=== PATIENT | female | born 1965 | race Caucasian/White ===

== ENCOUNTER 2016-09-23 13:50 | Inpatient (IN) | payer OTHER ==
--- NOTE | 2016-09-23 14:01 | PDOC ---
History of Present Illness - General History Source: Patient Exam Limitations: No Limitations - History of Present Illness Initial Comments: 09/23/16 15:56 51 y/o F with no PMHx presents to the ED with bloody diarrhea today. Patient reports that she noticed one episode of a maroon colored, soft, bloody stool 5 days ago but since then they have been normal until today. Today she reports bright red bloody diarrhea. She reports associated dizziness and nausea. She states she has been taking 800 mg daily for two weeks because of an ankle sprain. She denies pain on defecation. She denies abdominal pain, vomiting. She denies chest pain, SOB, dizziness. She denies fever, chills. Allergies: ciprofloxacin, ciprofloxacin HCl, levofloxacin FHx: maternal MS, [place] SHx: chews nicotine gum, social drinker <Luna Estrada - Last Filed: 09/23/16 15:56> - History of Present Illness Initial Comments: 09/23/16 17:31 Repeat H&H 10 and 30, drop considerably from 13 and 40 upon admission. Blood loss and delusional effects. <Power Last - Last Filed: 09/24/16 07:53> - General Chief Complaint: Rectal Bleed Stated Complaint: BLOOD IN STOOL Time Seen by Provider: 09/23/16 14:00 Past History <Luna Estrada - Last Filed: 09/23/16 15:56> - Past Medical History Other medical history: DENIES - Psycho/Social/Smoking Cessation Hx Anxiety: No Suicidal Ideation: No Smoking History: Former smoker Have you smoked in the past 12 months: No Information on smoking cessation initiated: No Hx Alcohol Use: Yes Drug/Substance Use Hx: No Substance Use Type: Alcohol <Power Last - Last Filed: 09/24/16 07:53> - Past Medical History Allergies/Adverse Reactions: Allergies Allergy/AdvReac Type Severity Reaction Status Date / Time ciprofloxacin [From Cipro] Allergy Verified 09/23/16 13:53 ciprofloxacin HCl Allergy Verified 09/23/16 13:53 [From Cipro] levofloxacin [From Levaquin] Allergy Verified 09/23/16 13:53 Home Medications: Ambulatory Orders NK [No Known Home Medication] 09/23/16 Review of Systems - Review of Systems Able to Perform ROS?: Yes Comments:: 09/23/16 15:57 CONSTITUTIONAL: Absent: fever, chills, diaphoresis, generalized weakness, malaise, loss of appetite HEENT: Absent: rhinorrhea, nasal congestion, throat pain, throat swelling, difficulty swallowing, mouth swelling, ear pain, eye pain, visual changes CARDIOVASCULAR: Absent: chest pain, syncope, palpitations, irregular heart rate , lightheadedness, peripheral edema RESPIRATORY: Absent: cough, shortness of breath, dyspnea with exertion, orthopnea, wheezing, stridor, hemoptysis GASTROINTESTINAL: (+) diarrhea, hematochezia. Absent: abdominal pain, abdominal distension, nausea, vomiting, constipation GENITOURINARY: Absent: dysuria, frequency, urgency, hesitancy, hematuria, flank pain, genital pain MUSCULOSKELETAL: Absent: myalgia, arthralgia, joint swelling SKIN: Absent: rash, itching, pallor HEMATOLOGIC/IMMUNOLOGIC: Absent: easy bleeding, easy bruising, lymphadenopathy, frequent infections ENDOCRINE: Absent: unexplained weight gain, unexplained weight loss, heat intolerance, cold intolerance NEUROLOGIC: (+) dizziness. Absent: headache, focal weakness or paresthesias, unsteady gait, seizure, mental status changes, bladder or bowel incontinence PSYCHIATRIC: Absent: anxiety, depression, suicidal or homicidal ideation, hallucinations. <Luna Estrada - Last Filed: 09/23/16 15:56> *Physical Exam - Vital Signs Last Vital Signs Temp Pulse Resp BP Pulse Ox 86 16 144/96 99 09/23/16 14:00 09/23/16 13:51 09/23/16 14:00 09/23/16 13:51 - Physical Exam Comments: 09/23/16 15:57 GENERAL: Alert and oriented x 3. Well nourished but pale, lightheaded, but no chest or abdominal pain. Orthostatic vital signs were performed in lying and sitting position. She did not tolerate standing due to lightheadedness. BP lying flat were 121/79 and 73 pulse. Upon sitting with her legs over the bed, BP was 114/85 and 86 pulse. HEENT: Pallor, but otherwise clear. CARDIOVASCULAR: Otherwise normal. PULMONARY: Lungs clear to auscultation bilaterally. ABDOMINAL: Soft. Non-tender. No masses. No organomegaly. Remainder of the exam was normal. <Luna Estrada - Last Filed: 09/23/16 15:56> - Vital Signs Last Vital Signs Temp Pulse Resp BP Pulse Ox 84 16 135/97 99 09/23/16 13:51 09/23/16 13:51 09/23/16 13:51 09/23/16 13:51 <Power Last - Last Filed: 09/24/16 07:53> ED Treatment Course - LABORATORY CBC & Chemistry Diagram: 09/23/16 14:09 09/23/16 14:09 - ADDITIONAL ORDERS Additional order review: Laboratory Results 09/23/16 14:09 INR Cancelled 09/23/16 14:09 RBC 4.82 MCV 83.3 MCHC 33.9 RDW 13.0 MPV 8.6 Neutrophils % 75.2 Lymphocytes % 17.1 Monocytes % 6.1 Eosinophils % 1.1 Basophils % 0.5 - Medications Given in the ED: ED Medications Discontinued Medications Generic Name Dose Route Start Last Admin Trade Name Keoq PRN Reason Stop Dose Admin Pantoprazole Sodium 40 mg/ 100 mls @ 200 mls/hr 09/23/16 14:52 09/23/16 15:17 Sodium Chloride IVPB 09/23/16 15:21 200 mls/hr ONCE ONE Administration Sodium Chloride 1,000 mls @ 1,000 mls/hr 09/23/16 14:55 09/23/16 15:03 Normal Saline - IV 09/23/16 15:54 1,000 mls/hr ASDIR STA Administration Ondansetron HCl 4 mg 09/23/16 15:06 09/23/16 15:17 Zofran Injection IVPB 09/23/16 15:07 4 mg ONCE ONE Administration <Luna Estrada - Last Filed: 09/23/16 15:56> - LABORATORY CBC & Chemistry Diagram: 09/24/16 05:15 09/24/16 05:15 <Power Last - Last Filed: 09/24/16 07:53> Medical Decision Making - Medical Decision Making 09/23/16 16:51 Patient had several episodes of bloody stool, quite voluminous, upon arrival in the ER. However, this has subsided. She continues to be free of abdominal pain and vomiting. Her blood pressure, however, which was 140/90 when she arrived, has dropped to the 100/60 range with orthostatic changes. Intravenous fluids have been administered, blood has been drawn for type and crossmatch. Although her H&H is 13 and 40, this was done immediately after arrival and probably before equilibration. Suspect that her red blood count will be much lower now. Dr. Tavera has been contacted and has accepted the patient for the ICU. Hospitalist PA Dr. Burnham, was contacted by phone. He has accepted the case for Dr. segovia who will be the hospitalist attending Repeat hematocrit is 28 after equilibration. The patient appears to have stabilized. Only one further episode of bloody diarrhea in the last few hours. No abdominal pain. No chest pain or dizziness. Awaiting transport to the ICU. Signed out to Dr. Jay at 7 PM pending further observation and transport when available. <Power Last - Last Filed: 09/24/16 07:53> *DC/Admit/Observation/Transfer - Attestations Scribe Attestion: 09/23/16 15:57 Documentation prepared by Luna Estrada, acting as medical assistant for Power Lemons MD. <Luna Estrada - Last Filed: 09/23/16 15:56> - Discharge Dispostion Admit: Yes <Power Last - Last Filed: 09/24/16 07:53> Diagnosis at time of Disposition: GI bleed Qualifiers: GI bleed type/associated pathology: unspecified gastrointestinal hemorrhage type Qualified Code(s): K92.2 - Gastrointestinal hemorrhage, unspecified - Discharge Dispostion Condition at time of disposition: Stable
[2016-09-23 14:31] LABS: BASOPHIL 0.5 % (0-2.0); EOSINOPHIL 1.1 % (0-4.5); MCH 28.2 pg (25.7-33.7); MCHC 33.9 g/dl (32.0-36.0); MEAN CELL VOLUME 83.3 fl (80-96); MEAN PLT VOLUME 8.6 fl (7.5-11.1); NEUTROPHILS 75.2 % (42.8-82.8); PLATELET COUNT 287 K/MM3 (134-434); WHITE BLOOD COUNT 11.4 K/mm3 (4.0-10.8)
[2016-09-23] MEDS ORDERED: PANTOPRAZOLE SODIUM 40 MG in SODIUM CHLORIDE 100 ML IVPB ONE (14:52)
[2016-09-23] MEDS ORDERED: SODIUM CHLORIDE 1,000 ML IV STA ×3 (14:55→18:54)
[2016-09-23] MEDS ORDERED: PANTOPRAZOLE SODIUM 40 MG VIAL ONE (15:06)
[2016-09-23] MEDS ORDERED: ONDANSETRON 4 MG/2 ML VIAL ONE (15:06)
[2016-09-23] MEDS ORDERED: ONDANSETRON 4 MG/2 ML VIAL IVPB ONE (15:06)
[2016-09-23 16:03] LABS: INR 0.96 (0.82-1.09); PROTHROMBIN TIME (PATIENT) 10.8 SEC (10.2-13.0)
[2016-09-23 16:23] LABS: PH,URINE 5.5 (4.5-8); URINE APPEARANCE Clear; URINE BILIRUBIN 1+ (NEGATIVE); URINE BLOOD Negative (NEGATIVE); URINE GLUCOSE (UA) Negative (NEGATIVE); URINE KETONE 3+ (NEGATIVE); URINE LEUK ESTERASE Negative (NEGATIVE); URINE NITRITE Negative (NEGATIVE); URINE PROTEIN Negative (NEGATIVE); URINE UROBILINOGEN 0.2 (0.2-1.0)
[2016-09-23 16:24] LABS: URINE COLOR YELLOW
[2016-09-23 17:10] LABS: BASOPHIL 0.1 % (0-2.0); EOSINOPHIL 0.5 % (0-4.5); MCH 28.1 pg (25.7-33.7); MCHC 33.8 g/dl (32.0-36.0); MEAN CELL VOLUME 83.2 fl (80-96); MEAN PLT VOLUME 8.7 fl (7.5-11.1); NEUTROPHILS 83.3 % (42.8-82.8); PLATELET COUNT 233 K/MM3 (134-434); RDW 13.3 % (11.6-15.6); WHITE BLOOD COUNT 12.7 K/mm3 (4.0-10.8)
[2016-09-23 18:23] LABS: ALBUMIN 4.1 g/dl (3.5-5.0); ALK PHOS 55 U/L (32-92); ANION GAP 11 (8-16); BILIRUBIN,TOTAL 0.5 mg/dl (0.2-1.0); CALCIUM 9.2 mg/dl (8.4-10.2); CO2 21 mmol/L (22-28); CREATININE 0.8 mg/dl (0.6-1.3); GLUCOSE,RANDOM 108 mg/dl (74-106); SGOT/AST 23 U/L (10-42); SGPT/ALT 13 U/L (10-40); TOT PROT 6.5 g/dl (6.4-8.3)
[2016-09-23 19:15] LABS: BASOPHIL 1.5 % (0-2.0); EOSINOPHIL 0.6 % (0-4.5); MCH 27.8 pg (25.7-33.7); MCHC 33.1 g/dl (32.0-36.0); MEAN CELL VOLUME 84.1 fl (80-96); MEAN PLT VOLUME 8.4 fl (7.5-11.1); NEUTROPHILS 76.8 % (42.8-82.8); PLATELET COUNT 204 K/MM3 (134-434); RDW 12.9 % (11.6-15.6); WHITE BLOOD COUNT 9.8 K/mm3 (4.0-10.8)
[2016-09-23] MEDS ORDERED: ACETAMINOPHEN 325 MG TABLET (FP) PO PRN (22:08)
[2016-09-23] MEDS ORDERED: PROPOFOL 100 ML IVPB SCH (22:30)
[2016-09-23] MEDS: SODIUM CHLORIDE 1,000 ML IV SCH (22:34)
[2016-09-23] MEDS: CHLORHEXIDINE GLUCONATE 4% CLEANSER FOR DECOLONIZATION TP SCH (22:34)
[2016-09-23] MEDS: PANTOPRAZOLE SODIUM 80 MG in SODIUM CHLORIDE 100 ML IVPB SCH (22:34)
[2016-09-23] MEDS: MUPIROCIN 2% TOPICAL OINTMENT FOR DECOLONIZATION NS SCH (22:35)
[2016-09-23] MEDS ORDERED: PIPERACILLIN/TAZOB 3.375 GM 50 ML IVPB ONE (23:21)
--- NOTE | 2016-09-23 23:48 | PN ---
Teaching Attending Note Name of Resident: Yara Rees ATTENDING PHYSICIAN STATEMENT I saw and evaluated the patient. I reviewed the resident's note and discussed the case with the resident. I agree with the resident's findings and plan as documented. SUBJECTIVE: 51 yo obese female transferred from [facility] to [place] ICU with presumed acute GI bleed. Denies fever, chills, abdominal pain, chest pain, G/U complaints. Endorses melena x 1 followed by normal BM's and ultimately voluminous diarrhea with bright red blood at home and witnessed in ED. Denies any abdominal pain preceding or during movements. Does report NSAID use, approx. 800mg qD intermittently over past 2-3 weeks and recent travel history to [place] where she was hiking and swimming in a river. OBJECTIVE: - Vital Signs Temp: BP: 80-110s SBP HR: 70-80s RR: 16 spO2: 97-100% RA - Physical Examination General: Pale appearing obese female; Alert, cooperative and in NAD. HEENT: Pale conjunctiva, no oropharyngeal lesions Neck: No JVD or thyromegaly CV: RRR, S1 and S2 Pulm: CTA bilaterally Abd: Obese, soft, NTTP, ND, hyperactive bowel sounds Ext: Non-edematous, symmetrically appearing Skin: Raised papular lesions on abdomen RUQ that are non-pruritic and non- painful to touch; Few excoriations from healing bug bites on LE's - Imaging CXR reviewed CT A/P w/ Contrast Pending - Labs BUN/Cr: 22/0.8 K+ 4.6 ; Na 134 Leukocytosis 11.4 H/H downtrending from 13.6/40.2 to 9.5/28.9 Fecal occult positive UA significant for 3+ ketones and 1+ bilirubin Stool and Urine cultures pending ASSESSMENT: Acute Blood Loss Anemia GI Bleed - Presumed LGI source per history Leukocytosis - reactive or indicative of occult infection Hypotension - Low normal, responding to IVF hydration PLAN: Admit to ICU for close monitoring of hemodynamic stability, aggressive IVF hydration while awaiting GI consultation. IVF hydration w/ NS at this time, switch to 1/2 NS or LR if repeat CMP reveals rising Cl- ; Continue IV Protonix ; Zofran prn nausea ; NO NSAID Start Zosyn empiric coverage ( Cipro allergy ) Trend H/H q8h ; F/U CMP and pending cultures Type and screen already completed ; Transfuse if Hgb < 7 F/U CT A/P w/ IV and PO contrast F/U GI Consult eval and recs DISPOSITION Inpatient admission for above ; anticipate discharge >48h.
--- NOTE | 2016-09-23 23:48 | CONSULT ---
Consult Consult Specialty:: Pulmonary Critical Care Referred by:: Dr. Valdivia Reason for Consultation:: GI bleed - History of Present Illness Chief Complaint: Bloody diarrhea History of Present Illness: Pt is a 51 yo with no PMH who presented to ED ? bloody diarrhea x 1 day. Pt also reported dizziness and nausea. She stated that she has been taking 800mg of NSAID for the past two weeks for ankle pain. On arrival to ED pts Hgb was 13. While in ER had several episodes of bloody stool. On arrival to ED she was hemodynamically stable with BP of 135/97 and HR of 84, though subsequently her BP decreased somewhat to 100/60. She is now transferred to ICU for closer monitoring. Last Hgb prior to arrival to ICU was 9.5, no bloody bowel movements since admission to the ICU. Repeat CBC pending as well as CT A/P. Current Medications Acetaminophen (Tylenol -) 650 mg PO Q4H PRN PRN Reason: FEVER OR PAIN Chlorhexidine Gluconate (Hibiclens For Decolonization -) 1 applic TP HS [facility] Last Admin: 09/23/16 22:34 Dose: 1 applic Pantoprazole Sodium 80 mg/ (Sodium Chloride) 100 mls @ 10 mls/hr IVPB Q10H RICH PRN Reason: 8 MG/HR Last Admin: 09/23/16 22:34 Dose: 10 mls/hr Sodium Chloride (Normal Saline -) 1,000 mls @ 125 mls/hr IV ASDIR RICH Last Admin: 09/23/16 22:34 Dose: 125 mls/hr Mupirocin (Bactroban Ointment (For Decolonization) -) 1 applic NS BID [facility] Stop: 09/28/16 21:59 Last Admin: 09/23/16 22:35 Dose: 1 applic - History Source History Provided By: Medical Record - Alcohol/Substance Use Hx Alcohol Use: Yes - Smoking History Smoking history: Former smoker Have you smoked in the past 12 months: No Home Medications - Allergies Allergies/Adverse Reactions: Allergies Allergy/AdvReac Type Severity Reaction Status Date / Time ciprofloxacin [From Cipro] Allergy Verified 09/23/16 13:53 ciprofloxacin HCl Allergy Verified 09/23/16 13:53 [From Cipro] levofloxacin [From Levaquin] Allergy Verified 09/23/16 13:53 - Home Medications Home Medications: Ambulatory Orders NK [No Known Home Medication] 09/23/16 Physical Exam Vital Signs: Vital Signs Temperature Pulse Rate 86 09/23/16 21:03 Respiratory Rate 16 09/23/16 21:03 Blood Pressure 99/65 09/23/16 21:03 O2 Sat by Pulse Oximetry (%) 100 09/23/16 21:03 Constitutional: Yes: Calm Eyes: Yes: Other (pale conjunctiva) Cardiovascular: Yes: Regular Rate and Rhythm Respiratory: Yes: CTA Bilaterally Gastrointestinal: Yes: Abdomen, Obese, Hyperactive Bowel Sounds, Rectal Bleeding. No: Tenderness Extremities: Yes: WNL Edema: No Peripheral Pulses WNL: Yes Neurological: Yes: WNL Labs: CBCD WBC 9.8 K/mm3 (4.0-10.8) 09/23/16 19:05 RBC 3.43 M/mm3 (3.60-5.2) L 09/23/16 19:05 Hgb 9.5 GM/dl (10.7-15.3) L 09/23/16 19:05 Hct 28.9 % (32.4-45.2) L 09/23/16 19:05 MCV 84.1 fl (80-96) 09/23/16 19:05 MCHC 33.1 g/dl (32.0-36.0) 09/23/16 19:05 RDW 12.9 % (11.6-15.6) 09/23/16 19:05 Plt Count 204 K/MM3 (134-434) 09/23/16 19:05 MPV 8.4 fl (7.5-11.1) 09/23/16 19:05 CMP Sodium 134 mmol/L (136-145) L 09/23/16 14:09 Potassium 4.6 mmol/L (3.5-5.1) 09/23/16 14:09 Chloride 102 mmol/L (98-107) 09/23/16 14:09 Carbon Dioxide 21 mmol/L (22-28) L 09/23/16 14:09 Anion Gap 11 (8-16) 09/23/16 14:09 BUN 22 mg/dl (7-18) H 09/23/16 14:09 Creatinine 0.8 mg/dl (0.6-1.3) 09/23/16 14:09 Creat Clearance w eGFR > 60 (>60) 09/23/16 14:09 Calcium 9.2 mg/dl (8.4-10.2) 09/23/16 14:09 Total Bilirubin 0.5 mg/dl (0.2-1.0) 09/23/16 14:09 AST 23 U/L (10-42) 09/23/16 14:09 ALT 13 U/L (10-40) 09/23/16 14:09 Alkaline Phosphatase 55 U/L (32-92) 09/23/16 14:09 Total Protein 6.5 g/dl (6.4-8.3) 09/23/16 14:09 Albumin 4.1 g/dl (3.5-5.0) 09/23/16 14:09 Problem List - Problems (1) GI bleed Code(s): K92.2 - GASTROINTESTINAL HEMORRHAGE, UNSPECIFIED Qualifiers: GI bleed type/associated pathology: unspecified gastrointestinal hemorrhage type Qualified Code(s): K92.2 - Gastrointestinal hemorrhage, unspecified Assessment/Plan Assessment/Plan: GIB in the setting of NSAID use -GI following -avoid NSAIDs -large bore IV x 2 -type and screen -serial CBCs -transfuse for Hgb >7 -CT A/P -cont to monitor in ICU CCT: 35 minutes Tiesha LINN
[2016-09-24 00:03] VITALS: BMI 32.2
[2016-09-24 00:20] LABS: MCH 27.9 pg (25.7-33.7); MEAN CELL VOLUME 84.7 fl (80-96); MEAN PLT VOLUME 8.9 fl (7.5-11.1); PLATELET COUNT 192 K/MM3 (134-434); RDW 13.9 % (11.6-15.6); WHITE BLOOD COUNT 8.4 K/mm3 (4.0-10.0)
--- NOTE | 2016-09-24 00:43 | HP ---
CHIEF COMPLAINT: bright red bloody diarrhea HISTORY OF PRESENT ILLNESS: 51yo F with no significant PMH transferred from [place] c/o bright red bloody diarrhea x 8 episodes since 1pm today. Pt had one episode of bloody diarrhea at work before a meeting, then went into her meeting and had to excuse herself for another episode. She went back into her meeting, felt weak and had to lie on the floor. Her co-worker drove her to [facility]. She had more episodes of bloody diarrhea at [facility], was transferred here (straight into the ICU) and has had additional episodes here. Pt reported one episode of melena on Wednesday. Pt just returned from a 2 week vacation in [place] one week ago. On vacation she swam in fresh water, did some small hikes, and took 800mg Ibuprofen daily. Back in June she injured her Left knee but never went to the doctor, it has not been bothering her until vacation. She normally only takes Ibuprofen a couple times a month, but has been taking it more regularly for the past couple weeks. Pt denies hx of ulcers, h. pylori, diverticulosis, or similar symptoms. Pt denies abdominal pain, hemoptysis, hematuria, chest pain, SOB, dizziness. ICU course was notable for: (1) CBC, CMP, stool culture, urine culture (2) CXR pending (3) NS @ 125 ml/hr (4) Protonix drip 40mg IVPB Recent Travel: 2 weeks in [place] returning 1 week ago PAST MEDICAL HISTORY: hemorrhoids in PAST SURGICAL HISTORY: 14 yrs ago complicated by hospital acquired infection treated with antibiotics. carpal tunnel repair 30 yrs ago. Social History: Smoking: nicotine gum Alcohol: socially Drugs: none Family History: mom MS, [place] at age 70 with double bypass CABG mother's brother quadruple bypass CABG Allergies ciprofloxacin [From Cipro] Allergy (Verified 09/23/16 13:53) ciprofloxacin HCl [From Cipro] Allergy (Verified 09/23/16 13:53) levofloxacin [From Levaquin] Allergy (Verified 09/23/16 13:53) HOME MEDICATIONS: Home Medications Medication Instructions Recorded NK [No Known Home Medication] 09/23/16 REVIEW OF SYSTEMS CONSTITUTIONAL: Absent: fever, chills, diaphoresis, generalized weakness, malaise, loss of appetite HEENT: Absent: rhinorrhea, nasal congestion, throat pain, ear pain, eye pain, visual changes CARDIOVASCULAR: Absent: chest pain, palpitations, irregular heart rate, lightheadedness, peripheral edema RESPIRATORY: Absent: hemoptysis, cough, shortness of breath, dyspnea with exertion, orthopnea , wheezing, stridor GASTROINTESTINAL: Present: BRBPR diarrhea Absent: abdominal pain, abdominal distension, nausea, vomiting, constipation, melena GENITOURINARY: Absent: hematuria MUSCULOSKELETAL: Absent: myalgia, arthralgia, joint swelling, back pain, neck pain SKIN: Absent: rash, itching, pallor HEMATOLOGIC/IMMUNOLOGIC: Absent: easy bleeding, easy bruising, lymphadenopathy, frequent infections ENDOCRINE: Absent: unexplained weight gain, unexplained weight loss, heat intolerance, cold intolerance NEUROLOGIC: Absent: bladder/bowel incontinence, headache, focal weakness or paresthesias, dizziness, unsteady gait, seizure, mental status changes PSYCHIATRIC: Absent: anxiety, depression. PHYSICAL EXAMINATION Last Vital Signs Temp Pulse Resp BP Pulse Ox 98.6 F 78 12 122/76 100 09/23/16 23:43 09/23/16 23:43 09/23/16 23:43 09/23/16 23:43 09/23/16 23:43 GENERAL: Awake, alert, and fully oriented, in no acute distress. HEAD: Normal with no signs of trauma. EYES: Pupils equal, round and reactive to light, extraocular movements intact, sclera anicteric, conjunctival pallor. No lid lag. EARS, NOSE, THROAT: Oropharynx clear without exudates. Moist mucous membranes. NECK: Supple without lymphadenopathy, JVD, or masses. LUNGS: Breath sounds equal, clear to auscultation bilaterally. No wheezes, and no crackles. No accessory muscle use. HEART: Regular rate and rhythm, normal S1 and S2 without murmur, rub or gallop. ABDOMEN: Soft, nontender, not distended, hyperactive bowel sounds, no guarding, no rebound, no masses. No hepatomegaly or splenomegaly. LOWER EXTREMITIES: 2+ pulses, warm, well-perfused. No calf tenderness. No peripheral edema. NEUROLOGICAL: Cranial nerves II-XII intact. Normal speech. Normal gait. PSYCHIATRIC: Cooperative. Good eye contact. Appropriate mood and affect. SKIN: A cluster of 5 raised, red, papular, non-pruritic, non-painful lesions noted on RUQ, new today per pt. Warm, dry, normal turgor. Laboratory Last Values WBC 9.8 K/mm3 (4.0-10.8) 09/23/16 19:05 RBC 3.43 M/mm3 (3.60-5.2) L 09/23/16 19:05 Hgb 9.5 GM/dl (10.7-15.3) L 09/23/16 19:05 Hct 28.9 % (32.4-45.2) L 09/23/16 19:05 MCV 84.1 fl (80-96) 09/23/16 19:05 MCH 27.8 pg (25.7-33.7) 09/23/16 19:05 MCHC 33.1 g/dl (32.0-36.0) 09/23/16 19:05 RDW 12.9 % (11.6-15.6) 09/23/16 19:05 Plt Count 204 K/MM3 (134-434) 09/23/16 19:05 MPV 8.4 fl (7.5-11.1) 09/23/16 19:05 Neutrophils % 76.8 % (42.8-82.8) 09/23/16 19:05 Lymphocytes % 15.7 % (8-40) D 09/23/16 19:05 Monocytes % 5.4 % (3.8-10.2) 09/23/16 19:05 Eosinophils % 0.6 % (0-4.5) 09/23/16 19:05 Basophils % 1.5 % (0-2.0) D 09/23/16 19:05 INR 0.96 (0.82-1.09) L 09/23/16 15:54 Sodium 134 mmol/L (136-145) L 09/23/16 14:09 Potassium 4.6 mmol/L (3.5-5.1) 09/23/16 14:09 Chloride 102 mmol/L (98-107) 09/23/16 14:09 Carbon Dioxide 21 mmol/L (22-28) L 09/23/16 14:09 Anion Gap 11 (8-16) 09/23/16 14:09 BUN 22 mg/dl (7-18) H 09/23/16 14:09 Creatinine 0.8 mg/dl (0.6-1.3) 09/23/16 14:09 Creat Clearance w eGFR > 60 (>60) 09/23/16 14:09 Random Glucose 108 mg/dl (74-106) H 09/23/16 14:09 Calcium 9.2 mg/dl (8.4-10.2) 09/23/16 14:09 Total Bilirubin 0.5 mg/dl (0.2-1.0) 09/23/16 14:09 AST 23 U/L (10-42) 09/23/16 14:09 ALT 13 U/L (10-40) 09/23/16 14:09 Alkaline Phosphatase 55 U/L (32-92) 09/23/16 14:09 Total Protein 6.5 g/dl (6.4-8.3) 09/23/16 14:09 Albumin 4.1 g/dl (3.5-5.0) 09/23/16 14:09 Urine Color Yellow 09/23/16 15:54 Urine Appearance Clear 09/23/16 15:54 Urine pH 5.5 (4.5-8) 09/23/16 15:54 Ur Specific [place] >= 1.030 (1.005-1.025) H 09/23/16 15:54 Urine Protein Negative (NEGATIVE) 09/23/16 15:54 Urine Glucose (UA) Negative (NEGATIVE) 09/23/16 15:54 Urine Ketones 3+ (NEGATIVE) H 09/23/16 15:54 Urine Blood Negative (NEGATIVE) 09/23/16 15:54 Urine Nitrite Negative (NEGATIVE) 09/23/16 15:54 Urine Bilirubin 1+ (NEGATIVE) H 09/23/16 15:54 Urine Urobilinogen 0.2 (0.2-1.0) 09/23/16 15:54 Ur Leukocyte Esterase Negative (NEGATIVE) 09/23/16 15:54 Stool Occult Blood Positive (NEGATIVE) 09/23/16 14:37 Blood Type O NEGATIVE 09/23/16 15:03 Antibody Screen Negative 09/23/16 15:03 IMAGIN09/23/16 CXR report pending, appears normal negative ASSESSMENT/PLAN: 51yo F with no significant PMH presents c/o voluminous bright red bloody diarrhea x 8 episodes since 1pm today, transferred from [facility], admitted to ICU for acute GI Bleeding with anemia. 1) GI Bleeding - likely 2/2 gastric ulcer from NSAID use vs diverticulitis vs infectious - skin lesions on RUQ do not look like dermatitis herpetiformis - f/u abd/pelvis CT with IV and PO contrast - f/u stool culture - NS @ 125 ml/hr - cont. Protonix drip - Zosyn 3.375g one-time dose given for empiric coverage - GI Consult - NO NSAIDs 2) leukocytosis - likely reactive - resolved by 7pm - cont. to monitor 3) anemia - trend CBC - consider transfusing PRBCs if hemoglobin continues to drop 4) FEN - fluids: NS @ 125 ml/hr - electrolytes: cont. to monitor - nutrition: npo 5) prophylaxis - keyanna SCDs for DVT prophylaxis Visit type - Emergency Visit Emergency Visit: Yes ED Registration Date: 09/23/16 Care time: The patient presented to the Emergency Department on the above date and was hospitalized for further evaluation of their emergent condition. - New Patient This patient is new to me today: Yes Date on this admission: 09/24/16 - Critical Care Critical Care patient: No
[2016-09-24 00:46] LABS: ANION GAP 9 (8-16); CALCIUM 7.1 mg/dL (8.5-10.1); CO2 23 mmol/L (21-32); CREATININE 0.5 mg/dL (0.55-1.02); GLUCOSE,RANDOM 74 mg/dL (74-106); MAGNESIUM 1.7 mg/dL (1.8-2.4); PHOSPHOROUS 2.5 mg/dL (2.5-4.9)
[2016-09-24] MEDS ORDERED: PT OWN MED DRAWER 7, Y5N ONE (06:02)
[2016-09-24 06:47] LABS: BASOPHIL 0.8 % (0-2.0); EOSINOPHIL 1.7 % (0-4.5); MCH 27.5 pg (25.7-33.7); MCHC 33.7 g/dl (32.0-36.0); MEAN CELL VOLUME 81.6 fl (80-96); MEAN PLT VOLUME 8.7 fl (7.5-11.1); NEUTROPHILS 69.2 % (42.8-82.8); PLATELET COUNT 189 K/MM3 (134-434); RDW 16.6 % (11.6-15.6); WHITE BLOOD COUNT 7.4 K/mm3 (4.0-10.0)
[2016-09-24 06:55] LABS: INR 1.12 (0.82-1.09); PROTHROMBIN TIME (PATIENT) 12.4 SEC (9.98-11.88)
[2016-09-24 06:57] LABS: ACTIVATED PTT 29.4 SECONDS (26.9-34.4)
[2016-09-24 07:04] LABS: ALBUMIN 2.6 g/dl (3.4-5.0); ANION GAP 7 (8-16); BILIRUBIN,TOTAL 1.5 mg/dL (0.2-1.0); CALCIUM 7.1 mg/dL (8.5-10.1); CO2 24 mmol/L (21-32); CREATININE 0.6 mg/dL (0.55-1.02); GLUCOSE,RANDOM 82 mg/dL (74-106); SGOT/AST 13 U/L (15-37); SGPT/ALT 14 U/L (12-78); TOT PROT 4.4 g/dl (6.4-8.2)
[2016-09-24 07:05] LABS: ALK PHOS 36 U/L (45-117)
[2016-09-24] MEDS: SODIUM CHLORIDE 1,000 ML IV SCH ×3 (08:10→22:27)
[2016-09-24] MEDS: PANTOPRAZOLE SODIUM 80 MG in SODIUM CHLORIDE 100 ML IVPB SCH (09:05)
--- NOTE | 2016-09-24 09:52 | CON.GI ---
Consult Consult Specialty:: GI for Dr. Arzate Referred by:: Hospitalist Reason for Consultation:: GI Bleed - History of Present Illness Chief Complaint: I started bleeding yesterday History of Present Illness: 51F admitted for evaluation of rectal bleeding. She states being in [place] up until yesterday when she began experiencing rectal bleeding yesterday afternoon while at work. She described it as dark red bleeding, at first mixed with stool , then was just bloody. She had 7-8 episodes with associated lightheadedness. She was taken to [facility] and Transferred to [facility] ICU. Triage vitals were stable with HR in 80's and SBP 130's. She sis have further episodes of rectal bleeding and became hypotensive ovenight. Initial Hgb was 13.6. repeat was 10.3 2 hours later and 8.4 8 hours after admission. She was given 1 unit of PRBC. She denies any associated abdominal pain, fevers, similar episodes in the past. She has been taking motrin 800mg daily on a close to daily basis over the last 3 weeks due to knee pain. A CT scan of the abdomen and pelvis was performed with PO and IV contrast limiting evaluation for source of bleeding, revealed diverticulosis, small umbilical hernia without acute pathology. She had three bloody bowel movements this morning. - History Source History Provided By: Patient - Past Medical History Additional Medical History: Denies - Past Surgical History Past Surgical History: Yes: - Alcohol/Substance Use Hx Alcohol Use: Yes (Social) History of Substance Use: reports: Marijuana - Smoking History Smoking history: Former smoker Have you smoked in the past 12 months: No - Social History Usual Living Arrangement: With Spouse ADL: Independent Occupation: [employer] Place of : [facility] History of Recent Travel: Yes ([place]) Home Medications - Allergies Allergies/Adverse Reactions: Allergies Allergy/AdvReac Type Severity Reaction Status Date / Time ciprofloxacin [From Cipro] Allergy Verified 09/23/16 13:53 ciprofloxacin HCl Allergy Verified 09/23/16 13:53 [From Cipro] levofloxacin [From Levaquin] Allergy Verified 09/23/16 13:53 - Home Medications Home Medications: Ambulatory Orders NK [No Known Home Medication] 09/23/16 Family Disease History - Family Disease History Family Disease History: Other: Father (Alive: healthy), Mother (Alive: 72: MS), Brother (None), Sister (None), Daughter (1 daughter, healthy) Other Family History: No family h/o colorectal cancer or other GI malignancy Review of Systems - Review of Systems Constitutional: denies: Diaphoresis, Unintentional Wgt. Loss Cardiovascular: denies: Chest Pain Respiratory: denies: SOB Gastrointestinal: reports: Rectal Bleeding. denies: Abdominal Pain, Constipation, Melena, Vomiting Blood Hematology/Lymphatic: denies: Easily Bruised Physical Exam-GI Vital Signs: Vital Signs Temperature 98.6 F 09/24/16 06:00 Pulse Rate 72 09/24/16 08:00 Respiratory Rate 16 09/24/16 08:00 Blood Pressure 120/82 09/24/16 08:00 O2 Sat by Pulse Oximetry (%) 97 09/24/16 08:10 Constitutional: Yes: Calm Eyes: No: Sclera Icterus Cardiovascular: Yes: Regular Rate and Rhythm. No: Murmur Respiratory: Yes: CTA Bilaterally Gastrointestinal Inspection: No: Distention, Hernia, Scars ...Auscultate: Yes: Normoactive Bowel Sounds ...Palpate: No: Hepatomegaly, Splenomegaly, Tenderness ...Percussion: No: Tympanitic ...Rectal Exam: Yes: Other (Dark red blood in rectal vault, no masses) Edema: No Neurological: Yes: Alert, Oriented Labs: CBC, BMP 09/24/16 05:15 09/24/16 05:15 INR, PTT INR 1.12 (0.82-1.09) 09/24/16 05:15 Hepatic Panel Total Bilirubin 1.5 mg/dL (0.2-1.0) H 09/24/16 05:15 AST 13 U/L (15-37) L 09/24/16 05:15 ALT 14 U/L (12-78) 09/24/16 05:15 Alkaline Phosphatase 36 U/L (45-117) L 09/24/16 05:15 Albumin 2.6 g/dl (3.4-5.0) L 09/24/16 05:15 Imaging - Results Cat Scan: Report Reviewed, Image Reviewed Problem List - Problems (1) GI bleed Assessment/Plan: Currently hemodynamically stable. Has received 1 u PRBC overnight Suspect lower GI source: possibley diverticular in setting of NSAID use To exclude upper source such as PUD, we discussed upper endoscopy followed by possible colonoscopy if unrevealing. We discussed potential risks of the procedure like but not limited to bleeding, perforation requiring surgery to repair, infection, sedation medcation effects all of which could be potentially life threatening. She has agreed to the procedure. For now: NPO except meds IV hydration Continue PPI infusion for now Monitor hemodynamics and for signs of active GI bleeding 2 U PRBC placed on hold Code(s): K92.2 - GASTROINTESTINAL HEMORRHAGE, UNSPECIFIED Qualifiers: GI bleed type/associated pathology: unspecified gastrointestinal hemorrhage type Qualified Code(s): K92.2 - Gastrointestinal hemorrhage, unspecified
[2016-09-24] MEDS: MUPIROCIN 2% TOPICAL OINTMENT FOR DECOLONIZATION NS SCH ×2 (09:58→22:26)
--- NOTE | 2016-09-24 11:44 | PN ---
Teaching Attending Note Name of Resident: Delfin Allen ATTENDING PHYSICIAN STATEMENT I saw and evaluated the patient. I reviewed the resident's note and discussed the case with the resident. I agree with the resident's findings and plan as documented. SUBJECTIVE: Patient seen and examined in the ICU. Awake and alert. Noted 5 gm drop in H&H. Denies CP or SOB. No abdominal pain. Intake & Output 09/21/16 09/22/16 09/23/16 09/24/16 23:59 23:59 23:59 23:59 Intake Total 1999 1295 Output Total 403 Balance 1999 892 Weight 176 lb 1 oz 176 lb 1 oz Last Vital Signs Temp Pulse Resp BP Pulse Ox 98.6 F 65 16 115/63 97 09/24/16 06:00 09/24/16 10:00 09/24/16 10:00 09/24/16 10:00 09/24/16 08:10 Active Medications Acetaminophen (Tylenol -) 650 mg PO Q4H PRN PRN Reason: FEVER OR PAIN Chlorhexidine Gluconate (Hibiclens For Decolonization -) 1 applic TP HS [facility] Last Admin: 09/23/16 22:34 Dose: 1 applic Pantoprazole Sodium 80 mg/ (Sodium Chloride) 100 mls @ 10 mls/hr IVPB Q10H RICH PRN Reason: 8 MG/HR Last Admin: 09/24/16 09:05 Dose: 10 mls/hr Sodium Chloride (Normal Saline -) 1,000 mls @ 125 mls/hr IV ASDIR [facility] Last Admin: 09/24/16 08:10 Dose: 125 mls/hr Mupirocin (Bactroban Ointment (For Decolonization) -) 1 applic NS BID [facility] Stop: 09/28/16 21:59 Last Admin: 09/24/16 09:58 Dose: 1 applic Constitutional: Yes: NAD Eyes: Yes: (-) Pallor (-) Icterus Cardiovascular: Yes: Regular Rate and Rhythm Respiratory: Yes: CTA Bilaterally Gastrointestinal: Yes: Abdomen, Obese, Hyperactive Bowel Sounds, Rectal Bleeding. No: Tenderness Extremities: Yes: WNL Edema: No Peripheral Pulses WNL: Yes Neurological: Yes: WNL Labs: Laboratory Results - last 24 hr 09/23/16 09/23/16 09/23/16 14:09 14:09 14:09 WBC 11.4 H RBC 4.82 Hgb 13.6 Hct 40.2 MCV 83.3 MCH 28.2 MCHC 33.9 RDW 13.0 Plt Count 287 MPV 8.6 Neutrophils % 75.2 Lymphocytes % 17.1 Monocytes % 6.1 Eosinophils % 1.1 Basophils % 0.5 INR Cancelled PTT (Actin FS) Sodium 134 L Potassium 4.6 Chloride 102 Carbon Dioxide 21 L Anion Gap 11 BUN 22 H Creatinine 0.8 Creat Clearance w eGFR > 60 Random Glucose 108 H Calcium 9.2 Phosphorus Magnesium Total Bilirubin 0.5 AST 23 ALT 13 Alkaline Phosphatase 55 Total Protein 6.5 Albumin 4.1 Urine Color Urine Appearance Urine pH Ur Specific Clay Urine Protein Urine Glucose (UA) Urine Ketones Urine Blood Urine Nitrite Urine Bilirubin Urine Urobilinogen Ur Leukocyte Esterase Stool Occult Blood Blood Type Antibody Screen Crossmatch 09/23/16 09/23/16 09/23/16 14:37 15:03 15:54 WBC RBC Hgb Hct MCV MCH MCHC RDW Plt Count MPV Neutrophils % Lymphocytes % Monocytes % Eosinophils % Basophils % INR PTT (Actin FS) Sodium Potassium Chloride Carbon Dioxide Anion Gap BUN Creatinine Creat Clearance w eGFR Random Glucose Calcium Phosphorus Magnesium Total Bilirubin AST ALT Alkaline Phosphatase Total Protein Albumin Urine Color Yellow Urine Appearance Clear Urine pH 5.5 Ur Specific Clay >= 1.030 H Urine Protein Negative Urine Glucose (UA) Negative Urine Ketones 3+ H Urine Blood Negative Urine Nitrite Negative Urine Bilirubin 1+ H Urine Urobilinogen 0.2 Ur Leukocyte Esterase Negative Stool Occult Blood Positive Blood Type O NEGATIVE Antibody Screen Negative Crossmatch See Detail 09/23/16 09/23/16 09/23/16 15:54 16:37 19:05 WBC 12.7 H 9.8 RBC 3.65 D 3.43 L Hgb 10.3 L D 9.5 L Hct 30.4 L D 28.9 L MCV 83.2 84.1 MCH 28.1 27.8 MCHC 33.8 33.1 RDW 13.3 12.9 Plt Count 233 204 MPV 8.7 8.4 Neutrophils % 83.3 H 76.8 Lymphocytes % 11.5 D 15.7 D Monocytes % 4.6 5.4 Eosinophils % 0.5 0.6 Basophils % 0.1 1.5 D INR 0.96 L PTT (Actin FS) Sodium Potassium Chloride Carbon Dioxide Anion Gap BUN Creatinine Creat Clearance w eGFR Random Glucose Calcium Phosphorus Magnesium Total Bilirubin AST ALT Alkaline Phosphatase Total Protein Albumin Urine Color Urine Appearance Urine pH Ur Specific Clay Urine Protein Urine Glucose (UA) Urine Ketones Urine Blood Urine Nitrite Urine Bilirubin Urine Urobilinogen Ur Leukocyte Esterase Stool Occult Blood Blood Type Antibody Screen Crossmatch 09/23/16 09/23/16 09/23/16 22:06 23:30 23:30 WBC 8.4 RBC 3.00 L Hgb 8.4 L Hct 25.4 L MCV 84.7 MCH 27.9 MCHC 33.0 RDW 13.9 Plt Count 192 MPV 8.9 Neutrophils % Lymphocytes % Monocytes % Eosinophils % Basophils % INR PTT (Actin FS) 28.7 Sodium 142 Potassium 3.9 Chloride 110 H Carbon Dioxide 23 Anion Gap 9 BUN 16 Creatinine 0.5 L Creat Clearance w eGFR Random Glucose 74 Calcium 7.1 L Phosphorus 2.5 Magnesium 1.7 L Total Bilirubin AST ALT Alkaline Phosphatase Total Protein Albumin Urine Color Urine Appearance Urine pH Ur Specific Clay Urine Protein Urine Glucose (UA) Urine Ketones Urine Blood Urine Nitrite Urine Bilirubin Urine Urobilinogen Ur Leukocyte Esterase Stool Occult Blood Blood Type Antibody Screen Crossmatch 09/24/16 09/24/16 09/24/16 01:00 05:15 05:15 WBC 7.4 RBC 3.30 L Hgb 9.1 L Hct 26.9 L MCV 81.6 MCH 27.5 MCHC 33.7 RDW 16.6 H D Plt Count 189 MPV 8.7 Neutrophils % 69.2 Lymphocytes % 22.0 Monocytes % 6.3 Eosinophils % 1.7 Basophils % 0.8 INR PTT (Actin FS) Sodium 141 Potassium 3.8 Chloride 110 H Carbon Dioxide 24 Anion Gap 7 L BUN 14 Creatinine 0.6 Creat Clearance w eGFR > 60 Random Glucose 82 Calcium 7.1 L Phosphorus Magnesium Total Bilirubin 1.5 H AST 13 L ALT 14 Alkaline Phosphatase 36 L Total Protein 4.4 L Albumin 2.6 L Urine Color Urine Appearance Urine pH Ur Specific Clay Urine Protein Urine Glucose (UA) Urine Ketones Urine Blood Urine Nitrite Urine Bilirubin Urine Urobilinogen Ur Leukocyte Esterase Stool Occult Blood Blood Type O NEGATIVE Antibody Screen Crossmatch See Detail 09/24/16 05:15 WBC RBC Hgb Hct MCV MCH MCHC RDW Plt Count MPV Neutrophils % Lymphocytes % Monocytes % Eosinophils % Basophils % INR 1.12 PTT (Actin FS) 29.4 Sodium Potassium Chloride Carbon Dioxide Anion Gap BUN Creatinine Creat Clearance w eGFR Random Glucose Calcium Phosphorus Magnesium Total Bilirubin AST ALT Alkaline Phosphatase Total Protein Albumin Urine Color Urine Appearance Urine pH Ur Specific Clay Urine Protein Urine Glucose (UA) Urine Ketones Urine Blood Urine Nitrite Urine Bilirubin Urine Urobilinogen Ur Leukocyte Esterase Stool Occult Blood Blood Type Antibody Screen Crossmatch Problem List - Problems (1) GI bleed Code(s): K92.2 - GASTROINTESTINAL HEMORRHAGE, UNSPECIFIED Qualifiers: GI bleed type/associated pathology: unspecified gastrointestinal hemorrhage type Qualified Code(s): K92.2 - Gastrointestinal hemorrhage, unspecified Assessment/Plan GIB in the setting of NSAID use Normal transfusion thresholds O2 as needed SCDs No NSAIDs Large bore IV x 2 Follow serial CBCs NPO for now For Endoscopic evaluation Dr Dimas CCTime 35" The care of this patient involved high complexity decision making to prevent further life threatening deterioration of the patient's condition and/or to evaluate & treat vital organ system(s) failure or risk of failure.
[2016-09-24] MEDS ORDERED: PROPOFOL 20 ML ONE ×3 (12:14)
[2016-09-24] MEDS ORDERED: BISACODYL 5 MG TABLET.DR (FP) PO ONE ×2 (12:40→16:00)
--- NOTE | 2016-09-24 12:43 | PN ---
Progress Note (short form) - Note Progress Note: EGD report placed in procedural section of physical chart and to be scanned into [employer] Problem List - Problems (1) GI bleed Code(s): K92.2 - GASTROINTESTINAL HEMORRHAGE, UNSPECIFIED Qualifiers: GI bleed type/associated pathology: unspecified gastrointestinal hemorrhage type Qualified Code(s): K92.2 - Gastrointestinal hemorrhage, unspecified
--- NOTE | 2016-09-24 15:19 | PN ---
Physical Exam: SUBJECTIVE: Patient seen and examined at bed side this afternoon. Just returned from EGD. No complaints at this time. Denies chest pain, sob, cough, palpitation , abdominal pain, nausea or vomiting. Bladder habit normal. No acute overnight events. OBJECTIVE: Vital Signs Period Temp Pulse Resp BP Sys/Richard Pulse Ox Last 24 Hr 98 F-99.0 F 64-99 10-20 90-123/49-82 97-100 GENERAL: The patient is awake, alert, and fully oriented, laying comfortably in bed, in no acute distress. HEAD: Normal with no signs of trauma. EYES: EOM intact, mild pallor, no icterus. ENT: Ears normal, moist mucous membranes. NECK: Supple. LUNGS: B/L Breath sounds equal, clear to auscultation bilaterally, no wheezes, no crackles, no accessory muscle use. HEART: Regular rate and rhythm, S1, S2 without murmur. ABDOMEN: Soft, nontender, nondistended, normoactive bowel sounds, no guarding, no rebound, no hepatosplenomegaly, no masses. EXTREMITIES: 2+ pulses, warm, well-perfused, no edema. NEUROLOGICAL: No facial droop, power in all ext- 5/5; Cranial nerves II through XII grossly intact. Normal speech, gait not observed. PSYCH: Normal mood, normal affect. SKIN: Warm, dry, normal turgor, no rashes or lesions noted Laboratory Results - last 24 hr 09/23/16 09/23/16 09/23/16 22:06 23:30 23:30 WBC 8.4 RBC 3.00 L Hgb 8.4 L Hct 25.4 L MCV 84.7 MCH 27.9 MCHC 33.0 RDW 13.9 Plt Count 192 MPV 8.9 Neutrophils % Lymphocytes % Monocytes % Eosinophils % Basophils % INR PTT (Actin FS) 28.7 Sodium 142 Potassium 3.9 Chloride 110 H Carbon Dioxide 23 Anion Gap 9 BUN 16 Creatinine 0.5 L Creat Clearance w eGFR Random Glucose 74 Calcium 7.1 L Phosphorus 2.5 Magnesium 1.7 L Total Bilirubin AST ALT Alkaline Phosphatase Total Protein Albumin Urine HCG, Qual Blood Type Crossmatch 09/24/16 09/24/16 09/24/16 01:00 05:15 05:15 WBC 7.4 RBC 3.30 L Hgb 9.1 L Hct 26.9 L MCV 81.6 MCH 27.5 MCHC 33.7 RDW 16.6 H D Plt Count 189 MPV 8.7 Neutrophils % 69.2 Lymphocytes % 22.0 Monocytes % 6.3 Eosinophils % 1.7 Basophils % 0.8 INR PTT (Actin FS) Sodium 141 Potassium 3.8 Chloride 110 H Carbon Dioxide 24 Anion Gap 7 L BUN 14 Creatinine 0.6 Creat Clearance w eGFR > 60 Random Glucose 82 Calcium 7.1 L Phosphorus Magnesium Total Bilirubin 1.5 H AST 13 L ALT 14 Alkaline Phosphatase 36 L Total Protein 4.4 L Albumin 2.6 L Urine HCG, Qual Blood Type O NEGATIVE Crossmatch See Detail 09/24/16 09/24/16 05:15 10:52 WBC RBC Hgb Hct MCV MCH MCHC RDW Plt Count MPV Neutrophils % Lymphocytes % Monocytes % Eosinophils % Basophils % INR 1.12 PTT (Actin FS) 29.4 Sodium Potassium Chloride Carbon Dioxide Anion Gap BUN Creatinine Creat Clearance w eGFR Random Glucose Calcium Phosphorus Magnesium Total Bilirubin AST ALT Alkaline Phosphatase Total Protein Albumin Urine HCG, Qual Negative Blood Type Crossmatch Active Medications Generic Name Dose Route Start Last Admin Trade Name Freq PRN Reason Stop Dose Admin Acetaminophen 650 mg 09/23/16 22:08 Tylenol - PO Q4H PRN FEVER OR PAIN Bisacodyl 20 mg 09/24/16 16:00 Dulcolax - PO 09/24/16 16:01 ONCE ONE Chlorhexidine Gluconate 1 applic 09/23/16 22:00 09/23/16 22:34 Hibiclens For Decolonization - TP 1 applic HS RICH Administration Sodium Chloride 1,000 mls @ 125 mls/hr 09/23/16 22:15 09/24/16 08:10 Normal Saline - IV 125 mls/hr ASDIR RICH Administration Mupirocin 1 applic 09/23/16 22:00 09/24/16 09:58 Bactroban Ointment (For Decolonization) - NS 09/28/16 21:59 1 applic BID RICH Administration Pantoprazole Sodium 20 mg 09/25/16 10:00 Protonix - PO DAILY RICH ASSESSMENT/PLAN: Patient is a 51 year old female with no significant PMH presented to the ED with the chief complaints of bright red bloody diarrhea x 8 episodes since 1 day , transferred from [facility], admitted to ICU for acute GI Bleeding with anemia. # Gastrointestinal Bleed Likely secondary to use of NSAID (around 4 pills a day since weeks for knee pain) vs lower GI bleed EGD was done today which showed: Normal mucosa of esophagaus, two small erosions found in gastric antrum. Very mild duodenitis was found in the distal duodenal bulb; Retroflexed views in the stomach revealed no abnormalities, no upper GI source of bleeding noted. Protonix drip changed to 20mg PO Daily IV NS 125 mls/hr Colonoscopy tomorrow, prep started with Golytely. # Normocytic anemia Hb 9.1 today, received 1 PRBC yesterday. Transfuse if Hb < 7gm/dl and if actively bleeding. # Leukocytosis likely reactive- now resolved # FEN IV NS @ 125 ml/hr Electrolytes to be repeated in AM Clear Liquid diet until midnight, NPO after midnight. # Prophylaxis For DVT- On Scds For GI: On protonix # Code status: Full code Illness, Investigation and Plan of care explained to the patient. She verbalized understanding. Case discussed with Dr. Dimas. Visit type - Emergency Visit Emergency Visit: Yes ED Registration Date: 09/23/16 Care time: The patient presented to the Emergency Department on the above date and was hospitalized for further evaluation of their emergent condition. - New Patient This patient is new to me today: Yes Date on this admission: 09/24/16 - Critical Care Critical Care patient: Yes Total Critical Care Time (in minutes): 35 Critical Care Statement: The care of this patient involved high complexity decision making to prevent further life threatening deterioration of the patient 's condition and/or to evaluate & treat vital organ system(s) failure or risk of failure.
--- NOTE | 2016-09-24 15:31 | PN ---
Teaching Attending Note Name of Resident: Aldo John ATTENDING PHYSICIAN STATEMENT I saw and evaluated the patient. I reviewed the resident's note and discussed the case with the resident. I agree with the resident's findings and plan as documented. SUBJECTIVE: Patient is feeling better but feeling weak, still having bloody diarrhea right bright red in color. Denies any fever or chills, no shortness of breath. OBJECTIVE: Vital Signs Temperature 99.0 F 09/24/16 14:00 Pulse Rate 75 09/24/16 14:00 Respiratory Rate 20 09/24/16 14:00 Blood Pressure 123/73 09/24/16 14:00 O2 Sat by Pulse Oximetry (%) 97 09/24/16 08:10 CBCD WBC 7.4 K/mm3 (4.0-10.0) 09/24/16 05:15 RBC 3.30 M/mm3 (3.60-5.2) L 09/24/16 05:15 Hgb 9.1 GM/dL (10.7-15.3) L 09/24/16 05:15 Hct 26.9 % (32.4-45.2) L 09/24/16 05:15 MCV 81.6 fl (80-96) 09/24/16 05:15 MCHC 33.7 g/dl (32.0-36.0) 09/24/16 05:15 RDW 16.6 % (11.6-15.6) H D 09/24/16 05:15 Plt Count 189 K/MM3 (134-434) 09/24/16 05:15 MPV 8.7 fl (7.5-11.1) 09/24/16 05:15 CMP Sodium 141 mmol/L (136-145) 09/24/16 05:15 Potassium 3.8 mmol/L (3.5-5.1) 09/24/16 05:15 Chloride 110 mmol/L (98-107) H 09/24/16 05:15 Carbon Dioxide 24 mmol/L (21-32) 09/24/16 05:15 Anion Gap 7 (8-16) L 09/24/16 05:15 BUN 14 mg/dL (7-18) 09/24/16 05:15 Creatinine 0.6 mg/dL (0.55-1.02) 09/24/16 05:15 Creat Clearance w eGFR > 60 (>60) 09/24/16 05:15 Random Glucose 82 mg/dL (74-106) 09/24/16 05:15 Calcium 7.1 mg/dL (8.5-10.1) L 09/24/16 05:15 Total Bilirubin 1.5 mg/dL (0.2-1.0) H 09/24/16 05:15 AST 13 U/L (15-37) L 09/24/16 05:15 ALT 14 U/L (12-78) 09/24/16 05:15 Alkaline Phosphatase 36 U/L (45-117) L 09/24/16 05:15 Total Protein 4.4 g/dl (6.4-8.2) L 09/24/16 05:15 Albumin 2.6 g/dl (3.4-5.0) L 09/24/16 05:15 Current Medications Generic Name Dose Route Start Last Admin Trade Name Freq PRN Reason Stop Dose Admin Acetaminophen 650 mg 09/23/16 22:08 Tylenol - PO Q4H PRN FEVER OR PAIN Bisacodyl 20 mg 09/24/16 16:00 Dulcolax - PO 09/24/16 16:01 ONCE ONE Chlorhexidine Gluconate 1 applic 09/23/16 22:00 09/23/16 22:34 Hibiclens For Decolonization - TP 1 applic HS RICH Administration Sodium Chloride 1,000 mls @ 125 mls/hr 09/23/16 22:15 09/24/16 08:10 Normal Saline - IV 125 mls/hr ASDIR RICH Administration Mupirocin 1 applic 09/23/16 22:00 09/24/16 09:58 Bactroban Ointment (For Decolonization) - NS 09/28/16 21:59 1 applic BID RICH Administration Pantoprazole Sodium 20 mg 09/25/16 10:00 Protonix - PO DAILY RICH Home Medications Medication Instructions Recorded NK [No Known Home Medication] 09/23/16 PE: per resident's note CHEST: CTA BL ABDOMEN: soft, NT,NR,NG ASSESSMENT AND PLAN: Patient is a 51yo F with no significant PMHx presents to ED. c/o voluminous bright red bloody diarrhea x 8 episodes since 1pm 09/23/2016, transferred from [facility], admitted to ICU for acute GI Bleeding with anemia. # Acute GI Bleed continues with hx of use of NSAIDs r/o PUD; Patient was seen by GI and had an EGD done, as per 's report: was found to have 2 small erosions most likely NSAID induced, No gI source of bleeding noted. Protonix 20mg po daily x 4 weeks was suggested. Patient is going for colonoscopy on 09/25/2016, continue IVF, discontinue protonix drip once completed. # Diverticuli as per CT report in the splenic flexure, proximal, mid sigmoid colon , going for Colonoscopy in am by , H/H , type and screen for 2 units. NPO after midnight. # Acute Normocytic anemia follow H/H, repeat the level in am DVT Px: SCDs
--- NOTE | 2016-09-24 15:38 | EKG ---
Test Reason : Blood Pressure : / mmHG Vent. Rate : 064 BPM Atrial Rate : 064 BPM P-R Int : 140 ms QRS Dur : 076 ms QT Int : 408 ms P-R-T Axes : 029 001 003 degrees QTc Int : 420 ms SINUS RHYTHM NONSPECIFIC T WAVE ABNORMALITY NO PREVIOUS ECGS AVAILABLE Confirmed by NICANOR AREVALO MD ([id number]) on 09/24/2016 3:38:19 PM Referred By: MD GARNER Confirmed By:NICANOR AREVALO MD
--- NOTE | 2016-09-24 16:52 | PN ---
Physical Exam: SUBJECTIVE: Patient seen and examined at bedside. No acute events at this time. Continues to have bloody BMs. Pt has no other complaints at this time. Denies headache, fever, chills, nausea, vomiting. OBJECTIVE: Vital Signs Period Temp Pulse Resp BP Sys/Richard Pulse Ox Last 24 Hr 98 F-99.0 F 64-99 10-20 90-123/49-82 97-100 GENERAL: The patient is awake, alert, and fully oriented, in no acute distress. HEAD: Normal with no signs of trauma. EYES: PERRLA, EOMI, sclera anicteric, conjunctiva clear. No ptosis. ENT: nares patent, oropharynx clear without exudates, moist mucous membranes. NECK: Trachea midline, full range of motion, supple. LUNGS: Breath sounds equal, clear to auscultation bilaterally, no wheezes, no crackles, no accessory muscle use. HEART: Regular rate and rhythm, S1, S2 without murmur, rub or gallop. ABDOMEN: Soft, nontender, nondistended, normoactive bowel sounds, no guarding, no rebound, no hepatosplenomegaly, no masses. EXTREMITIES: 2+ pulses, warm, well-perfused, no edema. NEUROLOGICAL: Cranial nerves II through XII grossly intact. Normal speech, gait not observed. Strength 5/5 throughout, sensation intact throughout. PSYCH: Normal mood, normal affect. SKIN: Warm, dry, normal turgor, no rashes or lesions noted Laboratory Results - last 24 hr 09/23/16 09/23/16 09/23/16 22:06 23:30 23:30 WBC 8.4 RBC 3.00 L Hgb 8.4 L Hct 25.4 L MCV 84.7 MCH 27.9 MCHC 33.0 RDW 13.9 Plt Count 192 MPV 8.9 Neutrophils % Lymphocytes % Monocytes % Eosinophils % Basophils % INR PTT (Actin FS) 28.7 Sodium 142 Potassium 3.9 Chloride 110 H Carbon Dioxide 23 Anion Gap 9 BUN 16 Creatinine 0.5 L Creat Clearance w eGFR Random Glucose 74 Calcium 7.1 L Phosphorus 2.5 Magnesium 1.7 L Total Bilirubin AST ALT Alkaline Phosphatase Total Protein Albumin Urine HCG, Qual Blood Type Crossmatch 09/24/16 09/24/16 09/24/16 01:00 05:15 05:15 WBC 7.4 RBC 3.30 L Hgb 9.1 L Hct 26.9 L MCV 81.6 MCH 27.5 MCHC 33.7 RDW 16.6 H D Plt Count 189 MPV 8.7 Neutrophils % 69.2 Lymphocytes % 22.0 Monocytes % 6.3 Eosinophils % 1.7 Basophils % 0.8 INR PTT (Actin FS) Sodium 141 Potassium 3.8 Chloride 110 H Carbon Dioxide 24 Anion Gap 7 L BUN 14 Creatinine 0.6 Creat Clearance w eGFR > 60 Random Glucose 82 Calcium 7.1 L Phosphorus Magnesium Total Bilirubin 1.5 H AST 13 L ALT 14 Alkaline Phosphatase 36 L Total Protein 4.4 L Albumin 2.6 L Urine HCG, Qual Blood Type O NEGATIVE Crossmatch See Detail 09/24/16 09/24/16 05:15 10:52 WBC RBC Hgb Hct MCV MCH MCHC RDW Plt Count MPV Neutrophils % Lymphocytes % Monocytes % Eosinophils % Basophils % INR 1.12 PTT (Actin FS) 29.4 Sodium Potassium Chloride Carbon Dioxide Anion Gap BUN Creatinine Creat Clearance w eGFR Random Glucose Calcium Phosphorus Magnesium Total Bilirubin AST ALT Alkaline Phosphatase Total Protein Albumin Urine HCG, Qual Negative Blood Type Crossmatch Active Medications Generic Name Dose Route Start Last Admin Trade Name Freq PRN Reason Stop Dose Admin Acetaminophen 650 mg 09/23/16 22:08 Tylenol - PO Q4H PRN FEVER OR PAIN Chlorhexidine Gluconate 1 applic 09/23/16 22:00 09/23/16 22:34 Hibiclens For Decolonization - TP 1 applic HS RICH Administration Sodium Chloride 1,000 mls @ 125 mls/hr 09/23/16 22:15 09/24/16 15:53 Normal Saline - IV 125 mls/hr ASDIR RICH Administration Mupirocin 1 applic 09/23/16 22:00 09/24/16 09:58 Bactroban Ointment (For Decolonization) - NS 09/28/16 21:59 1 applic BID RICH Administration Pantoprazole Sodium 20 mg 09/25/16 10:00 Protonix - PO DAILY RICH ASSESSMENT/PLAN: 51yo F with no significant PMH presents c/o voluminous bright red bloody diarrhea x 8 episodes since 1pm today, transferred from [facility], admitted to ICU for acute GI Bleeding with anemia. # GI Bleeding - Zosyn once in ED for empiric coverage - Endoscopy reveals 2 small gastric ulcer from NSAID use - CT showed Diverticulosis - Infectious etiology unlikely. Pt has no pain, no sick contacts, travel to [place] - f/u stool culture - Colonscopy tomorrow - NS @ 125 ml/hr - cont. Protonix drip - GI Consult - avoid NSAIDs # leukocytosis - likely reactive - resolved by 7pm - cont. to monitor # normocytic anemia - trend CBC - consider transfusing PRBCs if hemoglobin continues to drop # FEN - fluids: NS @ 125 ml/hr - electrolytes: cont. to monitor - nutrition: npo # prophylaxis - keyanna SCDs for DVT prophylaxis Aldo John MD PGY-1 Visit type - Emergency Visit Emergency Visit: No - New Patient This patient is new to me today: No - Critical Care Critical Care patient: No - Discharge Referral Referred to [facility] Med [facility] No
[2016-09-24] MEDS ORDERED: PEG3350/SOD SULF,BICARB,CL/KCL 4,000 ML SOLN.RECON PO ONE (17:00)
[2016-09-24 18:00] LABS: MCH 27.7 pg (25.7-33.7); MCHC 33.7 g/dl (32.0-36.0); MEAN CELL VOLUME 82.2 fl (80-96); MEAN PLT VOLUME 8.3 fl (7.5-11.1); PLATELET COUNT 197 K/MM3 (134-434); RDW 16.5 % (11.6-15.6); WHITE BLOOD COUNT 6.7 K/mm3 (4.0-10.0)
[2016-09-24] MEDS: CHLORHEXIDINE GLUCONATE 4% CLEANSER FOR DECOLONIZATION TP SCH (22:26)
[2016-09-25 06:42] LABS: BASOPHIL 1.1 % (0-2.0); EOSINOPHIL 2.6 % (0-4.5); MCH 27.2 pg (25.7-33.7); MCHC 33.5 g/dl (32.0-36.0); MEAN CELL VOLUME 81.1 fl (80-96); MEAN PLT VOLUME 8.4 fl (7.5-11.1); NEUTROPHILS 69.6 % (42.8-82.8); PLATELET COUNT 174 K/MM3 (134-434); RDW 15.9 % (11.6-15.6); WHITE BLOOD COUNT 6.4 K/mm3 (4.0-10.0)
[2016-09-25 06:51] LABS: INR 1.12 (0.82-1.09); PROTHROMBIN TIME (PATIENT) 12.3 SEC (9.98-11.88)
[2016-09-25 06:54] LABS: ACTIVATED PTT 29.8 SECONDS (26.9-34.4)
[2016-09-25 07:08] LABS: ALBUMIN 2.7 g/dl (3.4-5.0); ANION GAP 7 (8-16); BILIRUBIN,TOTAL 0.5 mg/dL (0.2-1.0); CALCIUM 7.4 mg/dL (8.5-10.1); CO2 25 mmol/L (21-32); CREATININE 0.5 mg/dL (0.55-1.02); GLUCOSE,RANDOM 84 mg/dL (74-106); MAGNESIUM 1.7 mg/dL (1.8-2.4); PHOSPHOROUS 2.1 mg/dL (2.5-4.9); SGOT/AST 13 U/L (15-37); SGPT/ALT 15 U/L (12-78); TOT PROT 4.7 g/dl (6.4-8.2)
[2016-09-25 07:09] LABS: ALK PHOS 35 U/L (45-117)
--- NOTE | 2016-09-25 07:34 | PN ---
Physical Exam: SUBJECTIVE: Patient seen and examined OBJECTIVE: Vital Signs Period Temp Pulse Resp BP Sys/Richard Pulse Ox Last 24 Hr 97.0 F-99.0 F 63-80 14-20 96-144/48-93 97-98 GENERAL: The patient is awake, alert, and fully oriented, in no acute distress. HEAD: Normal with no signs of trauma. EYES: PERRL, extraocular movements intact, sclera anicteric, conjunctiva clear. No ptosis. ENT: Ears normal, nares patent, oropharynx clear without exudates, moist mucous membranes. NECK: Trachea midline, full range of motion, supple. LUNGS: Breath sounds equal, clear to auscultation bilaterally, no wheezes, no crackles, no accessory muscle use. HEART: Regular rate and rhythm, S1, S2 without murmur, rub or gallop. ABDOMEN: Soft, nontender, nondistended, normoactive bowel sounds, no guarding, no rebound, no hepatosplenomegaly, no masses. EXTREMITIES: 2+ pulses, warm, well-perfused, no edema. NEUROLOGICAL: Cranial nerves II through XII grossly intact. Normal speech, gait not observed. PSYCH: Normal mood, normal affect. SKIN: Warm, dry, normal turgor, no rashes or lesions noted Laboratory Results - last 24 hr 09/24/16 09/24/16 09/24/16 01:00 10:52 17:50 WBC 6.7 RBC 3.51 L Hgb 9.7 L Hct 28.8 L MCV 82.2 MCH 27.7 MCHC 33.7 RDW 16.5 H Plt Count 197 MPV 8.3 Sodium Potassium Chloride Carbon Dioxide Anion Gap BUN Creatinine Creat Clearance w eGFR Random Glucose Calcium Phosphorus Magnesium Total Bilirubin AST ALT Alkaline Phosphatase Total Protein Albumin Urine HCG, Qual Negative Blood Type O NEGATIVE Crossmatch See Detail 09/25/16 05:30 WBC RBC Hgb Hct MCV MCH MCHC RDW Plt Count MPV Sodium 143 Potassium 3.4 L Chloride 111 H Carbon Dioxide 25 Anion Gap 7 L BUN 4 L D Creatinine 0.5 L Creat Clearance w eGFR > 60 Random Glucose 84 Calcium 7.4 L Phosphorus 2.1 L Magnesium 1.7 L Total Bilirubin 0.5 D AST 13 L ALT 15 Alkaline Phosphatase 35 L Total Protein 4.7 L Albumin 2.7 L Urine HCG, Qual Blood Type Crossmatch Active Medications Generic Name Dose Route Start Last Admin Trade Name Freq PRN Reason Stop Dose Admin Acetaminophen 650 mg 09/23/16 22:08 Tylenol - PO Q4H PRN FEVER OR PAIN Chlorhexidine Gluconate 1 applic 09/23/16 22:00 09/24/16 22:26 Hibiclens For Decolonization - TP 1 applic HS RICH Administration Sodium Chloride 1,000 mls @ 125 mls/hr 09/23/16 22:15 09/24/16 22:27 Normal Saline - IV 125 mls/hr ASDIR RICH Administration Mupirocin 1 applic 09/23/16 22:00 09/24/16 22:26 Bactroban Ointment (For Decolonization) - NS 09/28/16 21:59 1 applic BID RICH Administration Pantoprazole Sodium 20 mg 09/25/16 10:00 Protonix - PO DAILY RICH ASSESSMENT/PLAN: 51yo F with no significant PMH presents c/o voluminous bright red bloody diarrhea x 8 episodes since 1pm today, transferred from [facility], admitted to ICU for acute GI Bleeding with anemia. # GI Bleeding - Zosyn once in ED for empiric coverage - Endoscopy reveals 2 small gastric ulcer from NSAID use - CT showed Diverticulosis - Infectious etiology unlikely. Pt has no pain, no sick contacts, travel to [place] - f/u stool culture - NS @ 125 ml/hr - cont. Protonix drip - GI Consult - avoid NSAIDs - Colonscopy -Pt states bleeding has stopped # leukocytosis - likely reactive - resolved by 7pm - cont. to monitor # normocytic anemia - trend CBC - consider transfusing PRBCs if hemoglobin continues to drop #uterine fibroids -incidental discovery on CT -Pt advised to follow up out pt # FEN - fluids: NS @ 125 ml/hr - electrolytes: cont. to monitor - nutrition: npo # prophylaxis - keyanna SCDs for DVT prophylaxis Aldo Jonh MD PGY-1 Visit type - Emergency Visit Emergency Visit: No - New Patient This patient is new to me today: No - Critical Care Critical Care patient: No - Discharge Referral Referred to [facility] Med [facility] No
[2016-09-25] MEDS ORDERED: POTASSIUM CHLORIDE TABS 20 MEQ TABLET.ER (FP) PO ONE (09:30)
[2016-09-25] MEDS: MUPIROCIN 2% TOPICAL OINTMENT FOR DECOLONIZATION NS SCH (10:00)
[2016-09-25] MEDS ORDERED: PANTOPRAZOLE 20 MG TABLET (FP) PO SCH (10:00)
[2016-09-25] MEDS ORDERED: MAGNESIUM SULF 50% (8.12 MEQ/2 ML-1 GM VIAL) IVPB ONE (10:30)
[2016-09-25] MEDS ORDERED: POTASSIUM PHOSPHATE 30 MM in SODIUM CHLORIDE 250 ML IVPB ONE (11:00)
--- NOTE | 2016-09-25 11:05 | PN ---
Progress Note, Physician History of Present Illness: patient seen and examined at bedside no issues overnight wants to go home after colonoscopy feels "antsy" - Current Medication List Current Medications: Active Medications Acetaminophen (Tylenol -) 650 mg PO Q4H PRN PRN Reason: FEVER OR PAIN Chlorhexidine Gluconate (Hibiclens For Decolonization -) 1 applic TP HS [facility] Last Admin: 09/24/16 22:26 Dose: 1 applic Sodium Chloride (Normal Saline -) 1,000 mls @ 125 mls/hr IV ASDIR [facility] Last Admin: 09/24/16 22:27 Dose: 125 mls/hr Potassium Phosphate 30 mm/ (Sodium Chloride) 260 mls @ 43.333 mls/hr IVPB ONCE ONE Stop: 09/25/16 16:59 Mupirocin (Bactroban Ointment (For Decolonization) -) 1 applic NS BID [facility] Stop: 09/28/16 21:59 Last Admin: 09/25/16 10:00 Dose: 1 applic Pantoprazole Sodium (Protonix -) 20 mg PO DAILY [facility] Last Admin: 09/25/16 10:00 Dose: 20 mg - Objective Vital Signs: Vital Signs Temperature 98 F 09/25/16 10:00 Pulse Rate 67 09/25/16 10:00 Respiratory Rate 16 09/25/16 10:00 Blood Pressure 117/65 09/25/16 10:00 O2 Sat by Pulse Oximetry (%) 98 09/25/16 08:10 Constitutional: Yes: Well Nourished, No Distress Eyes: Yes: Conjunctiva Clear HENT: Yes: Atraumatic, Normocephalic Neck: Yes: Supple, Trachea Midline Cardiovascular: Yes: Regular Rate and Rhythm Respiratory: Yes: CTA Bilaterally Gastrointestinal: Yes: Normal Bowel Sounds, Soft Edema: No Neurological: Yes: Alert, Oriented Labs: CBC, BMP 09/25/16 05:30 09/25/16 05:30 INR, PTT INR 1.12 (0.82-1.09) 09/25/16 05:30 Assessment/Plan Patient is a 51 year old female with no significant PMH presented to the ED with the chief complaints of bright red bloody diarrhea for 1 day. Gastrointestinal Bleed: likely secondary to use of NSAID vs lower GI bleed EGD was done today which showed: Normal mucosa of esophagaus, two small erosions found in gastric antrum. Very mild duodenitis was found in the distal duodenal bulb; Retroflexed views in the stomach revealed no abnormalities, no upper GI source of bleeding noted. Protonix 20mg PO Daily Colonoscopy today Normocytic anemia Hb 9.1 today, Transfuse PRN Leukocytosis likely reactive- now resolved FEN IV NS @ 125 ml/hr replete potassium magnesium and phosphorus for hypokalemia hypomagnesemia and hypophosphatemia restart diet after colonoscopy Prophylaxis For DVT- On Scds For GI: On protonix Code status: Full code CCTime 35min Transfer to floor
--- NOTE | 2016-09-25 11:28 | PN ---
Teaching Attending Note Name of Resident: Delfin Allen ATTENDING PHYSICIAN STATEMENT I saw and evaluated the patient. I reviewed the resident's note and discussed the case with the resident. I agree with the resident's findings and plan as documented. SUBJECTIVE: Patient seen and examined in the ICU. Awake and alert. No occult bleeding overnight. H&H stable from her initial 5 gm drop. Denies CP or SOB. No abdominal pain. For colonoscopy today. Intake & Output 09/22/16 09/23/16 09/24/16 09/25/16 23:59 23:59 23:59 23:59 Intake Total 1999 4735 1500 Output Total 1203 Balance 1999 3532 1500 Weight 176 lb 1 oz 176 lb 1 oz 174 lb 2 oz Last Vital Signs Temp Pulse Resp BP Pulse Ox 98 F 67 16 117/65 98 09/25/16 10:00 09/25/16 10:00 09/25/16 10:00 09/25/16 10:00 09/25/16 08:10 Active Medications Acetaminophen (Tylenol -) 650 mg PO Q4H PRN PRN Reason: FEVER OR PAIN Chlorhexidine Gluconate (Hibiclens For Decolonization -) 1 applic TP HS [facility] Last Admin: 09/24/16 22:26 Dose: 1 applic Sodium Chloride (Normal Saline -) 1,000 mls @ 125 mls/hr IV ASDIR [facility] Last Admin: 09/24/16 22:27 Dose: 125 mls/hr Potassium Phosphate 30 mm/ (Sodium Chloride) 260 mls @ 43.333 mls/hr IVPB ONCE ONE Stop: 09/25/16 16:59 Last Admin: 09/25/16 11:06 Dose: 43.333 mls/hr Mupirocin (Bactroban Ointment (For Decolonization) -) 1 applic NS BID [facility] Stop: 09/28/16 21:59 Last Admin: 09/25/16 10:00 Dose: 1 applic Pantoprazole Sodium (Protonix -) 20 mg PO DAILY [facility] Last Admin: 09/25/16 10:00 Dose: 20 mg Constitutional: Yes: NAD Eyes: Yes: (-) Pallor (-) Icterus Cardiovascular: Yes: Regular Rate and Rhythm Respiratory: Yes: CTA Bilaterally Gastrointestinal: Yes: Abdomen, Obese, Hyperactive Bowel Sounds, Rectal Bleeding. No: Tenderness Extremities: Yes: WNL Edema: No Peripheral Pulses WNL: Yes Neurological: Yes: WNL Labs: Laboratory Results - last 24 hr 09/24/16 09/24/16 09/25/16 10:52 17:50 05:30 WBC 6.7 6.4 RBC 3.51 L 3.36 L Hgb 9.7 L 9.1 L Hct 28.8 L 27.2 L MCV 82.2 81.1 MCH 27.7 27.2 MCHC 33.7 33.5 RDW 16.5 H 15.9 H Plt Count 197 174 MPV 8.3 8.4 Neutrophils % 69.6 Lymphocytes % 20.2 Monocytes % 6.5 Eosinophils % 2.6 Basophils % 1.1 INR PTT (Actin FS) Sodium Potassium Chloride Carbon Dioxide Anion Gap BUN Creatinine Creat Clearance w eGFR Random Glucose Calcium Phosphorus Magnesium Total Bilirubin AST ALT Alkaline Phosphatase Total Protein Albumin Urine HCG, Qual Negative 09/25/16 09/25/16 05:30 05:30 WBC RBC Hgb Hct MCV MCH MCHC RDW Plt Count MPV Neutrophils % Lymphocytes % Monocytes % Eosinophils % Basophils % INR 1.12 PTT (Actin FS) 29.8 Sodium 143 Potassium 3.4 L Chloride 111 H Carbon Dioxide 25 Anion Gap 7 L BUN 4 L D Creatinine 0.5 L Creat Clearance w eGFR > 60 Random Glucose 84 Calcium 7.4 L Phosphorus 2.1 L Magnesium 1.7 L Total Bilirubin 0.5 D AST 13 L ALT 15 Alkaline Phosphatase 35 L Total Protein 4.7 L Albumin 2.7 L Urine HCG, Qual Problem List - Problems (1) GI bleed Code(s): K92.2 - GASTROINTESTINAL HEMORRHAGE, UNSPECIFIED Qualifiers: GI bleed type/associated pathology: unspecified gastrointestinal hemorrhage type Qualified Code(s): K92.2 - Gastrointestinal hemorrhage, unspecified Assessment/Plan GIB in the setting of NSAID use Diverticular bleed Normal transfusion thresholds O2 as needed SCDs No NSAIDs Large bore IV x 2 Follow serial CBCs For colonoscopy Dr Dimas CCTime 35" The care of this patient involved high complexity decision making to prevent further life threatening deterioration of the patient's condition and/or to evaluate & treat vital organ system(s) failure or risk of failure.
[2016-09-25 12:49] LABS: ANISOCYTOSIS 2+; MICROCYTOSIS 2+
--- NOTE | 2016-09-25 14:25 | PN ---
Teaching Attending Note Name of Resident: Aldo John ATTENDING PHYSICIAN STATEMENT I saw and evaluated the patient. I reviewed the resident's note and discussed the case with the resident. I agree with the resident's findings and plan as documented. SUBJECTIVE: Patient has no further bleeding diarrhea episode, going for colonoscopy today OBJECTIVE: Vital Signs Temperature 98 F 09/25/16 10:00 Pulse Rate 71 09/25/16 12:00 Respiratory Rate 20 09/25/16 12:00 Blood Pressure 126/63 09/25/16 12:00 O2 Sat by Pulse Oximetry (%) 98 09/25/16 08:10 CBCD WBC 6.4 K/mm3 (4.0-10.0) 09/25/16 05:30 RBC 3.36 M/mm3 (3.60-5.2) L 09/25/16 05:30 Hgb 9.1 GM/dL (10.7-15.3) L 09/25/16 05:30 Hct 27.2 % (32.4-45.2) L 09/25/16 05:30 MCV 81.1 fl (80-96) 09/25/16 05:30 MCHC 33.5 g/dl (32.0-36.0) 09/25/16 05:30 RDW 15.9 % (11.6-15.6) H 09/25/16 05:30 Plt Count 174 K/MM3 (134-434) 09/25/16 05:30 MPV 8.4 fl (7.5-11.1) 09/25/16 05:30 CMP Sodium 143 mmol/L (136-145) 09/25/16 05:30 Potassium 3.4 mmol/L (3.5-5.1) L 09/25/16 05:30 Chloride 111 mmol/L (98-107) H 09/25/16 05:30 Carbon Dioxide 25 mmol/L (21-32) 09/25/16 05:30 Anion Gap 7 (8-16) L 09/25/16 05:30 BUN 4 mg/dL (7-18) L D 09/25/16 05:30 Creatinine 0.5 mg/dL (0.55-1.02) L 09/25/16 05:30 Creat Clearance w eGFR > 60 (>60) 09/25/16 05:30 Random Glucose 84 mg/dL (74-106) 09/25/16 05:30 Calcium 7.4 mg/dL (8.5-10.1) L 09/25/16 05:30 Total Bilirubin 0.5 mg/dL (0.2-1.0) D 09/25/16 05:30 AST 13 U/L (15-37) L 09/25/16 05:30 ALT 15 U/L (12-78) 09/25/16 05:30 Alkaline Phosphatase 35 U/L (45-117) L 09/25/16 05:30 Total Protein 4.7 g/dl (6.4-8.2) L 09/25/16 05:30 Albumin 2.7 g/dl (3.4-5.0) L 09/25/16 05:30 Current Medications Generic Name Dose Route Start Last Admin Trade Name Freq PRN Reason Stop Dose Admin Acetaminophen 650 mg 09/23/16 22:08 Tylenol - PO Q4H PRN FEVER OR PAIN Chlorhexidine Gluconate 1 applic 09/23/16 22:00 09/24/16 22:26 Hibiclens For Decolonization - TP 1 applic HS RICH Administration Sodium Chloride 1,000 mls @ 125 mls/hr 09/23/16 22:15 09/24/16 22:27 Normal Saline - IV 125 mls/hr ASDIR RICH Administration Potassium Phosphate 30 mm/ 260 mls @ 43.333 mls/hr 09/25/16 11:00 09/25/16 11: 06 Sodium Chloride IVPB 09/25/16 16:59 43.333 mls/hr ONCE ONE Administration Mupirocin 1 applic 09/23/16 22:00 09/25/16 10:00 Bactroban Ointment (For Decolonization) - NS 09/28/16 21:59 1 applic BID RICH Administration Pantoprazole Sodium 20 mg 09/25/16 10:00 09/25/16 10:00 Protonix - PO 20 mg DAILY RICH Administration Home Medications Medication Instructions Recorded NK [No Known Home Medication] 09/23/16 PE: per resident's note CHEST: CTA BL ABDOMEN: soft, NT,NR,NG ASSESSMENT AND PLAN: Patient is a 51yo F with no significant PMHx presents to ED. c/o voluminous bright red bloody diarrhea x 8 episodes since 1pm 09/23/2016, transferred from [facility], admitted to ICU for acute GI Bleeding with anemia. # Acute GI Bleed , no further bleed today as per patient, going for colonoscopy this afternoon , came in with hx use of NSAIDs s/p EGD positive for erosive gastritis , report as per 's report: was found to have 2 small erosions most likely NSAID induced, No GI source of bleeding noted. Protonix 20mg po daily x 4 weeks as per GI recommendations. Patient is going for colonoscopy on 09/25/2016, continue IVF, discontinue protonix drip once completed. # Diverticuli as per CT report in the splenic flexure, proximal, mid sigmoid colon , going for Colonoscopy today by , H/H , type and screen for 2 units. IF negative Colonoscopy, if patient stable, possible discharge , we will check with GI # Acute Normocytic anemia follow H/H, 9.1 qith MCV of 81.4 DVT Px: SCDs
[2016-09-25] MEDS ORDERED: PROPOFOL 20 ML ONE ×3 (15:19)
[2016-09-25] MEDS ORDERED: LIDOCAINE HCL/PF 2% SDV 5ML VIAL ONE (15:19)
[2016-09-25] MEDS ORDERED: SIMETHICONE 40 MG/0.6 ML BOTTLE ONE (15:45)
[2016-09-25] MEDS ORDERED: SODIUM CHLORIDE 1,000 ML IV SCH (16:38)
[2016-09-25] MEDS ORDERED: ACETAMINOPHEN 325 MG TABLET (FP) PO PRN (16:38)
[2016-09-25 18:29] VITALS: BP 124/66; PULSE 68; TEMP 98.6
--- NOTE | 2016-09-25 18:36 | DS ---
Physical Exam: SUBJECTIVE: Patient seen and examined at bedside. No acute events overnight. Pt is no longer bleeding. Feels well. No complaints at this time. Denies headache, fever, chills, nausea, vomiting, abd pain. OBJECTIVE: Vital Signs Period Temp Pulse Resp BP Sys/Richard Pulse Ox Last 24 Hr 98 F-99 F 63-80 14-20 96-131/48-93 98-98 PHYSICAL EXAM GENERAL: The patient is awake, alert, and fully oriented, in no acute distress. HEAD: Normal with no signs of trauma. EYES: extraocular movements intact, sclera anicteric, conjunctiva clear. ENT: nares patent, oropharynx clear without exudates, moist mucous membranes. NECK: Trachea midline, full range of motion, supple. LUNGS: Breath sounds equal, clear to auscultation bilaterally, no wheezes, no crackles, no accessory muscle use. HEART: Regular rate and rhythm, S1, S2 without murmur, rub or gallop. ABDOMEN: Soft, nontender, nondistended, normoactive bowel sounds, no guarding, no rebound, no hepatosplenomegaly, no masses. EXTREMITIES: 2+ pulses, warm, well-perfused, no edema. NEUROLOGICAL: Cranial nerves II through XII grossly intact. Normal speech, gait not observed. PSYCH: Normal mood, normal affect. SKIN: Warm, dry, normal turgor, no rashes or lesions noted. LABS Laboratory Results - last 24 hr 09/25/16 09/25/16 09/25/16 05:30 05:30 05:30 WBC 6.4 RBC 3.36 L Hgb 9.1 L Hct 27.2 L MCV 81.1 MCH 27.2 MCHC 33.5 RDW 15.9 H Plt Count 174 MPV 8.4 Neutrophils % 69.6 Lymphocytes % 20.2 Monocytes % 6.5 Eosinophils % 2.6 Basophils % 1.1 Anisocytosis 2+ Microcytosis 2+ INR 1.12 PTT (Actin FS) 29.8 Sodium 143 Potassium 3.4 L Chloride 111 H Carbon Dioxide 25 Anion Gap 7 L BUN 4 L D Creatinine 0.5 L Creat Clearance w eGFR > 60 Random Glucose 84 Calcium 7.4 L Phosphorus 2.1 L Magnesium 1.7 L Total Bilirubin 0.5 D AST 13 L ALT 15 Alkaline Phosphatase 35 L Total Protein 4.7 L Albumin 2.7 L HOSPITAL COURSE: Date of Admission:09/23/16 Date of Discharge: 09/25/16 51yo F with no significant PMH presents c/o voluminous bright red bloody diarrhea x 8 episodes since 1pm today, transferred from [facility], admitted to ICU for acute GI Bleeding with anemia. Pt received Zosyn once in ED for empiric coverage. Endoscopy revealed 2 small regions of erosive gastritis, for which pt received Protonix. Pt had CT, which showed Diverticulosis. Colonoscopy was done and a sessile polyp was removed. Initially, the patient had leukocytosis, which resolved within a few hours. The patient was anemic on admission and received a blood transfusion. The patient's CT incidentally revealed uterine fibroids and ovarian cysts. Pt was notified and advised to follow up with PMD and [facility]. Pt is stable for discharge home. Minutes to complete discharge: 45 <Aldo John - Last Filed: 09/25/16 18:22> Physical Exam: SUBJECTIVE: Patient seen and examined <Yony Shi - Last Filed: 09/28/16 16:46> Discharge Summary Reason For Visit: GI BLEED Current Active Problems GI bleed (Acute) - Home Medications Comprehensive Discharge Medication List: Ambulatory Orders Pantoprazole Sodium [Protonix -] 20 mg PO DAILY #30 tablet. 09/25/16 <Aldo John - Last Filed: 09/25/16 18:22> - Home Medications Comprehensive Discharge Medication List: Ambulatory Orders Pantoprazole Sodium [Protonix -] 20 mg PO DAILY #30 tablet. 09/25/16 <Yony Shi - Last Filed: 09/28/16 16:46> Condition: Stable - Instructions Diet, Activity, Other Instructions: You need to follow up with your primary care doctor and with your GI doctor ( Dr. Randall) and the medical insurance claims processor (Dr. Dimas). You need to follow up with your primary care doctor and [facility] regarding your fibroids. You should ask your Primary care doctor to repeat your blood work to test for anemia. Please take all your prescription medications as directed. If you develop new symptoms or if your symptoms get worse, please return to the emergency department. Referrals: Hayder Randall DO [Staff Physician] - 1 Week Lev Dimas MD [Staff Physician] - 1 Week Disposition: HOME - Discharge Referral Referred to [facility] Med P.[facility] No <Aldo John - Last Filed: 09/25/16 18:22> This patient is new to me today: No Emergency Visit: Yes ED Registration Date: 09/23/16 Care time: The patient presented to the Emergency Department on the above date and was hospitalized for further evaluation of their emergent condition. Critical Care patient: No - Discharge Referral Referred to [facility] No <Yony Shi - Last Filed: 09/28/16 16:46>
[2016-09-26] MEDS ORDERED: PANTOPRAZOLE 20 MG TABLET (FP) PO SCH (10:00)
--- NOTE | 2016-09-29 10:52 | PATH ---
Surgical Pathology Report Patient Name: BEN BARTH [facility]. Rec. #: [id number] /Age/Gender: 1965 (Age: 51) / F Account: [id number] Location: [facility] MED/SURG Taken: 09/25/2016 Received: 09/28/2016 Reported: 09/29/2016 Physicians: Slava Arzate M.D. Specimen(s) Received POLYP SIGMOID Clinical History Rectal bleeding, GI bleeding Diverticulosis, polyp sigmoid colon Final Diagnosis COLON, SIGMOID, POLYP, POLYPECTOMY: HYPERPLASTIC POLYP WITH SERRATED FEATURES. Electronically Signed Albert Knox M.D. Gross Description Received in formalin, labeled "polyp sigmoid colon" is a mitchell, irregular portion of soft tissue measuring 0.3 cm in greatest dimension. The specimen is submitted in toto in one cassette. [facility]/09/28/2016 [facility]/09/28/2016
== END 2016-09-25 18:52 | disposition home or self-care (01) | DRG 378 ==
LOC: FER 13:50 → JICU 21:50 → J8W 09-25 16:27
PROVIDERS: ADMIT Internal Medicine; ATTEND Internal Medicine
PROC: 0DJ08ZZ Inspection of Upper Intestinal Tract, Via Natural or Artificial Opening Endoscopic (ICD-10-PCS; 2016-09-24)
PROC: 30233N1 Transfusion of Nonautologous Red Blood Cells into Peripheral Vein, Percutaneous Approach (ICD-10-PCS; 2016-09-24)
PROC: 0DBN8ZZ Excision of Sigmoid Colon, Via Natural or Artificial Opening Endoscopic (ICD-10-PCS; principal; 2016-09-25 13:30)
DX: K57.91 Diverticulosis of intestine, part unspecified, without perforation or abscess with bleeding (principal); D62 Acute posthemorrhagic anemia; D64.9 Anemia, unspecified; D72.829 Elevated white blood cell count, unspecified; D25.9 Leiomyoma of uterus, unspecified; E66.9 Obesity, unspecified; Z68.32 Body mass index [BMI] 32.0-32.9, adult; K63.5 Polyp of colon; K64.8 Other hemorrhoids; K29.80 Duodenitis without bleeding; N83.209 Unspecified ovarian cyst, unspecified side; E87.6 Hypokalemia; E83.42 Hypomagnesemia; E83.39 Other disorders of phosphorus metabolism; I95.9 Hypotension, unspecified
CPT/HCPCS: 36415; 36430; 71010-TC; 74177-TC; 80048; 80053; 81003; 82272; 83735; 84100; 84703; 85025; 85027; 85610; 85730; 86850; 86900; 86901; 86922; 87045; 87046; 87086; 88305-TC; 93005; 99285-25; P9038; P9058